=== PATIENT | female | born 1955 | race Caucasian/White ===

== ENCOUNTER 2016-06-30 10:34 | Outpatient (CLI) | payer MEDICARE ==
[2016-06-30 15:09] LABS: Hemoglobin A1c 9.3 % (4.0-6.0)
[2016-06-30 15:31] LABS: Cardiac Risk 3.3 (Less than 4.5)
== END 2016-06-30 10:35 | disposition home or self-care (01) ==
LOC: NAVSJIPCSP 10:34
PROVIDERS: ATTEND Internal Medicine
DX: E78.5 Hyperlipidemia, unspecified (principal); E11.49 Type 2 diabetes mellitus with other diabetic neurological complication; Z79.899 Other long term (current) drug therapy
CPT/HCPCS: 36415; 80061; 83036

== ENCOUNTER 2016-11-12 09:16 | Outpatient (CLI) | payer MEDICARE ==
[2016-11-12 11:40] LABS: Cardiac Risk 4.4 (Less than 4.5)
[2016-11-12 12:03] LABS: Hemoglobin A1c 8.1 % (4.0-6.0)
== END 2016-11-12 09:17 | disposition home or self-care (01) ==
LOC: NAVSJIPCSP 09:16
PROVIDERS: ATTEND Internal Medicine
DX: E11.49 Type 2 diabetes mellitus with other diabetic neurological complication (principal); E78.5 Hyperlipidemia, unspecified
CPT/HCPCS: 36415; 80061; 83036

== ENCOUNTER 2022-08-05 11:32 | Emergency (ER) | payer MEDICARE ==
[2022-08-05] MEDS ORDERED: Acetaminophen 500 MG TAB ONE (11:52)
== END 2022-08-05 12:27 | disposition home or self-care (01) ==
LOC: NAV ERS 11:32
DX: S63.501A Unspecified sprain of right wrist, initial encounter (principal); S80.12XA Contusion of left lower leg, initial encounter; E78.5 Hyperlipidemia, unspecified; E11.9 Type 2 diabetes mellitus without complications; I25.10 Atherosclerotic heart disease of native coronary artery without angina pectoris; I10 Essential (primary) hypertension; Z87.891 Personal history of nicotine dependence; W19.XXXA Unspecified fall, initial encounter; Z79.899 Other long term (current) drug therapy; Z79.4 Long term (current) use of insulin